=== PATIENT | female | born 1975 | race Caucasian/White ===

== ENCOUNTER 2017-01-10 14:30 | Outpatient (RCR) | payer MEDICARE ==
--- NOTE | 2017-01-10 10:59 | PT/OT/ST INITIAL EVALUATION ---
Department of Health and Human Services Form Approved Health Care Financing Administration OMB No. [id number] PLAN OF CARE/ASSESSMENT FOR OUTPATIENT REHABILITATION (Complete for Initial Claims Only) 1. PATIENT'S NAME Noreen Flores 2. ACC # [id number] 3. [id number] 4. PROVIDER NO. [id number] 5. TYPE: PT 6. PRIOR HOSPITALIZATION None 7. PRIMARY DX Left foot pain 8. SECONDARY DX NA 9. ONSET DATE 12/23/2016 10. REFERRAL DATE NA 11. SOC. DATE 01/07/2017 12. TIME OF EVAL 3:20 p.m. to 4:26 p.[address]. [address] RE[address]YSICIAN Dr. Chris Acharya 13. CHARGES/UNITS 14. G CODES [id number] 15. PRIOR LEVEL OF FUNCTION; PERTINENT HISTORY (Prior therapy results, reason for referral.) S: Prior to therapy the patient consented to today's evaluation and treatment. The patient is a 41-year-old female referred to physical therapy by Dr. Chris Acharya to address left foot and heel pain. Personal health rating: The patient rates overall and general health as fair. Mechanism of injury: The patient reports being unsure of how she had this onset of pain. She does report that the pain started to begin after December 23, 2016. She reports at this time she bought a new car and noticed the left foot pain when getting out of the car and weight bearing through the foot. Primary Complaint: The patient reports primarily experiencing pain and popping in the left heel. She also reports tenderness to touch along the back side of the heel along the Achilles tendon. The patient reports not knowing when her ankle is going to pop, but when it does it is very painful. After she experiences this popping sensation the pain can either subside or last for even a whole day. Prior level of function: Prior to the current complaint of left heel pain, the patient was able to complete all household tasks and take care of her children without any functional limitations. Current level of function: The patient reports that currently she is unable to ascend and descend stairs without pain and without feeling like her ankle is going to pop. She also reports being unable to walk and play with her children as she would desire. The patient is also reporting that she may be attributing some of the lack of mobility to her weight. The patient does report that this has been a challenge for her over time and something she is continuing to want to address. Therapy History: The patient reports no therapy history for this current issue at this time. Obstacles to delivery of care: None identified at this time. Pain level: Max pain level 8/10. Current pain level is 0/10. Aggravating factors: The patient reports not knowing exactly when she is going to hurt her ankle, but often is happening when she is taking a step on the left foot. Relieving factors: The patient report having relief of her symptoms when she is off her feet and also wearing her shoe insoles from her change lead. Diagnostic testing: No imaging was reported at this time. Past medical history: According to the intake form, the patient reports having a past medical history of depression, weight problems, gallbladder surgery, 2 hernia repairs, and C-sections. Patient's Goal: The patient reports desiring to return to prior level of function without pain, and also desiring to lose weight. 16. INITIAL ASSESSMENT/SAFETY PRECAUTIONS/MEDICAL COMPLICATIONS (Level of function at start of care. Be specific, use objective measures, list problems.) O: APPEARANCE, OBSERVATION AND GAIT: The patient is a pleasant, obese woman with a BMI of 62.5. The patient ambulates at a decreased loy, reciprocal pattern, wide base of support, and even step length. The patient also ambulates with bilateral ankle eversion with every step, and also increased supination throughout gait. The patient is also demonstrating limited toe-off in terminal stance of the gait cycle. A Trendelenburg gait on the left is observed. Upon static standing, the patient has mild resting pronation in bilateral ankles. The patient also has bilateral calcaneal eversion at rest. When weight shifting from side to side, the bilateral naviculars drops minimally. The patient also has heel popping throughout the exam today. PALPATION: The patient is tender to palpation along the left Achilles tendon, as well as along the lateral aspect of the ankle near the fibularis longus and brevis tendons. The patient also has bilateral muscle tightness in the gastrocsoleus complex, but especially on the left. The patient also has excessive calcaneal inversion on the left ankle as observed during mobilization of the left ankle. SPECIAL TESTS: No special tests completed this date. The patient has pain with inversion overpressure, as well as excessive pain in dorsiflexion. The patient also has a height of 64.5 inches and weight of 370 pounds, which is a BMI of 62.5 today. RANGE OF MOTION/FLEXIBILITY: Right ankle dorsiflexion 3 degrees, left 3 degrees, Ankle plantar flexion on the right 38 degrees, left 38 degrees. Ankle inversion on the right 17 degrees, and left 17 degrees. Right eversion 35 degrees, and left 34 degrees. STRENGTH: Hip flexion right 5/5, left 5/5. Right knee flexion 5/5, left 4+/5, right knee extension 4+/5, left 4/5, right dorsiflexion 5/5, left 5/5, right plantar flexion 5/5, left 5/5. Right hip abduction 3+/5, and left 3-/5. TODAY'S TREATMENT: Today's treatment consisted of education on the findings of the exam and the role of physical therapy and plan of care, initiation of light therapeutic exercise, gait training, as well as initiation of the home exercise program. 17. INITIAL POC: (Specify procedures, modalities, short and intermodal truck driver goals) A: PROGNOSIS: Upon completion of the today's initial physical therapy examination the patient presents for a good prognosis for therapy pending regular attendance and therapy sessions, as well as compliance with the home exercise program. Skill physical therapy services needed for increased range of motion, strengthening, gait training, and postural reeducation in order to reach patient's goals. OUTCOME ASSESSMENT: The patient completed the Lower Extremity Functional Index today with a score of 53/80. INFORMED CONSENT: The diagnosis, prognosis, treatment plan, risks and expected outcomes were discussed with the patient and the patient did agree to today's established plan of care. SHORT TERM GOALS: 1. The patient will be independent and compliant with home exercise program in 1 week in order to promote progress and therapy. 2. In 3 weeks the patient will demonstrate an increase in hip abduction strength from 3+/5 on the right and 3-/5 on the left to 4/5 bilaterally in order to promote normalized gait. 3. In 3 weeks, the patient will demonstrate a decrease in BMI to 62.5 to 61.5 in order to promote progress towards goals. 4. The patient will report a decrease in the Lower Extremity Functional Index score from 66% to 50% in 5 weeks in order to complete functional tasks in the home. 5. In 5 weeks, the patient will demonstrate an increase in bilateral ankle dorsiflexion from 3 degrees to 10 degrees in order to promote normal toe-off in terminal stance of gait. P: Plan to treat the patient 2 times a week for 6 weeks in order to address range of motion restrictions, functional limitations, strength deficits, as well as postural awareness. Treatment to include modalities as indicated to assist in manual therapies or for pain relief. Manual therapies including joint mobilization, myofascial release, as well as soft tissue mobilization, balance and proprioception training, gait training, therapeutic exercise to address strength and range of motion deficits, and neural reeducation and home exercise program. Thank you for the referral of this patient today. Noelle Najera, SPT dictating for Buster Carlson, PT 18. FREQUENCY 19. DURATION 20. FUNCTIONAL LEVEL (End of claim period) 21. PHYSICIAN SIGNATURE ? ON FILE OR ENTER HERE: 22. DATE: I certify the need for these services furnished under this plan of care and if for partial hospitalization. 23. CERTIFICATION FROM THROUGH FORM FA-700
[~2017-01-10 14:30] MED LIST: CEPH500T PO; CITA40TA19 PO; CPR500T PO; NF-TORA10 PO; NO HOME MEDICATIONS; TOPI100T38 PO; TRAM-25 PO
[2017-01-13] MEDS ORDERED: HYDR-3702 PO (16:22)
== END 2017-02-11 09:57 | disposition home or self-care (01) ==
LOC: PT 14:30
PROVIDERS: ATTEND Family Medicine
DX: M79.672 Pain in left foot (principal)
CPT/HCPCS: 97110; 97161; G8978; G8979

== ENCOUNTER → 2017-01-13 | Emergency (ER) | payer MEDICARE ==
[~2017-01-13] VITALS: Ht 165.1 cm; Wt 159.0 kg
[~2017-01-13] MED LIST changes: +HYDR-3702 PO; +HYDROcodone/APAP 5 MG/325 MG (NORCO) TAB PO ONE
--- OUTSIDE RECORDS SUMMARY | 2017-01-13 14:18 | XMS REPORT | Continuity of Care Document ---
Author Author [facility] Address Unknown Phone Unavailable Care Team Providers Care Senior Information Security Architect Name Role Phone EMERITA PARMAR MD PCP [phone] Insurance Providers Payer Name Policy Number Subscriber Name Relationship Medicare A And B [id number] Noreen Dykes 18 Self / Same As Patient Advance Directives Directive Response Recorded Date/Time Advanced Directives No 08/17/16 12:48pm Chief Complaint and Reason for Visit Chief Complaint Cardiac Complaint Reason for Visit Anxiety Problems Active Problems Medical Problem Onset Date Status Abdominal muscle pain Unknown Acute Acute lower urinary tract infection 07/20/2013 Resolved Anxiety Unknown Acute Carbon monoxide exposure ~06/03/2015 Acute Flank pain ~12/05/2013 Resolved Puncture wound Unknown Acute Puncture wound of skin 05/14/2012 Resolved Sprain of left ring finger ~11/18/2014 Acute Urinary tract infection Unknown Acute Medications Current Home Medications Medication Dose Units Route Directions Days/Qty Instructions Start Date No Home Medications 12/05/13 Citalopram Hydrobromide 40 Mg 40 Mg ORAL Bedtime as needed for Anxiety 06/02/15 Topiramate 100 Mg 100 Mg ORAL Daily as needed for Headache 08/17/16 Past Home Medications Medication Directions Ordered Status Cephalexin 500 Mg Tablet, 500 Mg Oral Four Times Daily 11/01/12 Discontinued Ciprofloxacin 500 Mg Tablet, 1 Tab Oral Twice A Day 07/20/13 Discontinued Tramadol Hcl 50 Mg Tablet, 50 Mg Oral Every 6 Hours as needed for Pain Discontinued Ketorolac Tromethamine 10 Mg Tab, 10 Mg Oral Every 6 Hours as needed for Pain 11/18/14 Discontinued Social History Query Response Start Date Stop Date Smoking Status Former smoker Hospital Discharge Instructions No hospital discharge instructions. Plan of Care Discharge Date 08/17/16 5:55pm Disposition 01 HOME OR SELF-CARE Condition at Discharge Stable Instructions/Education Provided Generalized Anxiety Disorder (ED) Prescriptions See Medication Section Referrals EMERITA PARMAR MD - Additional Instructions/Education Continue current medications Follow up with Dr. Parmar next week REturn if symptoms worsen Some of your test results may not be complete prior to your leaving the Emergency Department. The Emergency Department is not authorized to give test results over the phone. Please contact the doctor's office listed in this packet of information for your final results. Follow up with your primary care physician or return to the Emergency Department for worsening or worrisome symptoms. * Emergency Department phone number: [phone], x [phone]* MEDICAL RECORD If you need copies of your X-rays, call [phone]. If you need copies of your medical record, including lab results, a signed authorization for release of records will be required. A telephone call for release of Health Information is not allowed. BILLING Billing can sometimes be confusing and frustrating. To help avoid confusion in the future, please take a moment to acquaint yourself with the billing parties for services. SERVICE BILLING DEMOCRAT Emergency Room Services [facility] Physician Services [facility] X-rays [facility] Patients will receive bills for services from the appropriate provider. If you have any questions about your [facility] bill, our staff will be happy to assist you. Please call [phone], and ask for the billing department. THANK YOU for choosing [facility] as your emergency care provider! Care Plan and Goals ~~Discharge Care Plan~~ Problem: Chest, epigastric or chest wall pain Goal: Decreased pain Instructions: Take medication(s) as directed. Follow home discharge instructions. Follow up with primary care physician or derrick follower as directed. Functional Status No functional status results. Allergies, Adverse Reactions, Alerts Allergen Type Severity Reaction Status Last Updated Nitrofurantoin Macrocrystal Allergy Severe racing heart beat, hives Active 05/14/12 Nitrofurantoin Allergy Severe racing heart beat, hives Active 05/14/12 Azithromycin Allergy Mild racing heart beat Active 05/14/12 Immunizations No immunization records. Vital Signs Acute Vital Signs Vital Response Date/Time Temperature (Fahrenheit) 97.1 08/17/2016 5:34pm Pulse 78 bpm 08/17/2016 5:34pm Respirations 16 08/17/2016 5:34pm Height 5 ft 5 in Weight 339 lb Body Mass Index 56.0 kg/m^2 Results Laboratory Results Test Name Result Units Flags Reference Collection Date/Time Result Date/ Time Comments White Blood Count 5.65 10^3uL 4.0-11.0 08/17/2016 1:09pm 08/17/2016 1: 49pm Red Blood Count 4.19 10^6uL 4.00-5.00 08/17/2016 1:09pm 08/17/2016 1: 49pm Hemoglobin 12.1 g/dL 12.0-15.5 08/17/2016 1:09pm 08/17/2016 1:49pm Hematocrit 37.80 % 35.00-45.00 08/17/2016 1:09pm 08/17/2016 1:49pm Mean Corpuscular Volume 90 FL 80-100 08/17/2016 1:09pm 08/17/2016 1: 49pm Mean Corpuscular Hemoglobin 28.9 PG 26.0-34.0 08/17/2016 1:09pm 2015 1:49pm Mean Corpuscular Hemoglobin Concent 32.0 g/dL 31.0-37.0 08/17/2016 1: 09pm 08/17/2016 1:49pm Red Cell Distribution Width 15.0 % 11.8-15.6 08/17/2016 1:09pm 2015 1:49pm Platelet Count 182 10^3uL 150-450 08/17/2016 1:09pm 08/17/2016 1:49pm Mean Platelet Volume 12.0 FL H 6.0-9.5 08/17/2016 1:09pm 08/17/2016 1: 49pm Neutrophils (%) (Auto) 61 % 51-67 08/17/2016 1:09pm 08/17/2016 1:49pm Lymphocytes (%) (Auto) 26 % 20-46 08/17/2016 1:09pm 08/17/2016 1:49pm Monocytes (%) (Auto) 10 % 3-11 08/17/2016 1:09pm 08/17/2016 1:49pm Eosinophils (%) (Auto) 3 % 0-4 08/17/2016 1:09pm 08/17/2016 1:49pm Basophils (%) (Auto) 1 % 0-2 08/17/2016 1:09pm 08/17/2016 1:49pm Neutrophils # (Auto) 3.4 X10^3 08/17/2016 1:09pm 08/17/2016 1:49pm Lymphocytes # (Auto) 1.5 X10^3 08/17/2016 1:09pm 08/17/2016 1:49pm Monocytes # (Auto) 0.6 X10^3 08/17/2016 1:09pm 08/17/2016 1:49pm Eosinophils # (Auto) 0.1 10^3uL 08/17/2016 1:09pm 08/17/2016 1:49pm Basophils # (Auto) 0.0 10^3uL 08/17/2016 1:09pm 08/17/2016 1:49pm D-Dimer 633 ng/mL *H 0-500 08/17/2016 1:09pm 08/17/2016 2:21pm Results called to Suma SOLER in ER who read back the results. Called by Kiki Cruz at 1421 Sodium Level 142 mmol/L 135-150 08/17/2016 1:09pm 08/17/2016 1:53pm Potassium Level 4.4 mmol/L # 3.5-5.1 08/17/2016 1:09pm 08/17/2016 1:53pm Chloride Level 105 mmol/L 98-108 08/17/2016 1:09pm 08/17/2016 1:53pm Carbon Dioxide Level 28 mmol/L 22-29 08/17/2016 1:09pm 08/17/2016 1: 53pm Anion Gap 12.8 MEQ/L 3-15 08/17/2016 1:09pm 08/17/2016 1:53pm Blood Urea Nitrogen 12 mg/dL 7-18 08/17/2016 1:09pm 08/17/2016 1:53pm Creatinine 0.89 mg/dL 0.6-1.2 08/17/2016 1:09pm 08/17/2016 1:53pm BUN/Creatinine Ratio 13 10-20 08/17/2016 1:09pm 08/17/2016 1:53pm Estimat Glomerular Filtration Rate 85.9 08/17/2016 1:09pm 2015 1:53pm Estimated GFR (Non- 71.0 08/17/2016 1:09pm 2015 1:53pm Glucose Level 98 mg/dL 70-110 08/17/2016 1:09pm 08/17/2016 1:53pm Calculated Osmolality 273 mosm/L L 280-300 08/17/2016 1:09pm 08/17/2016 1:53pm Calcium Level 9.2 mg/dL 8.8-10.8 08/17/2016 1:09pm 08/17/2016 1:53pm Calcium/Ionized Calcium Ratio 4.2 mg/dL 3.8-4.6 08/17/2016 1:09pm 08/17 1:53pm Total Bilirubin 1.6 mg/dL H 0.1-1.0 08/17/2016 1:09pm 08/17/2016 1:53pm Alkaline Phosphatase 93 U/L 38-126 08/17/2016 1:09pm 08/17/2016 1:53pm Aspartate Amino Transf (AST/SGOT) 25 U/L 15-37 08/17/2016 1:09pm 2015 1:53pm Alanine Aminotransferase (ALT/SGPT) 44 U/L 30-65 08/17/2016 1:09pm 10/2015 1:53pm Troponin I < 0.012 ng/mL 0.010-0.080 08/17/2016 1:09pm 08/17/2016 1: 58pm Total Protein 6.7 g/dL 6.4-8.5 08/17/2016 1:09pm 08/17/2016 1:53pm Albumin 3.9 g/dL 3.4-5.0 08/17/2016 1:09pm 08/17/2016 1:53pm Albumin/Globulin Ratio 1.392 1.1-1.8 08/17/2016 1:09pm 08/17/2016 1: 53pm Procedures No known history of procedures. Encounters Encounter Location Arrival/Admit Date Discharge/Depart Date Attending Provider Departed Emergency Room [facility] 08/17/16 12:42pm 08/17/16 5:55pm TAINA JERNIGAN MD Recent Diagnosis
[2017-01-13 15:35] LABS: BASOPHILS % (AUTO) 1 % (0-2); EOSINOPHILS # (AUTO) 0.2 10^3uL; EOSINOPHILS % (AUTO) 3 % (0-4); LYMPHOCYTES # (AUTO) 1.7 X10^3; MEAN CORPUSCULAR HEMOGLOBIN 28.8 PG (26.0-34.0); MEAN CORPUSCULAR HGB CONC 31.9 g/dL (31.0-37.0); MEAN CORPUSCULAR VOLUME 91 FL (80-100); MEAN PLATELET VOLUME 11.7 FL (6.0-9.5); MONOCYTES # (AUTO) 0.4 X10^3; MONOCYTES % (AUTO) 7 % (3-11); NEUTROPHILS # (AUTO) 3.4 X10^3; NEUTROPHILS % (AUTO) 59 % (51-67); PLATELET COUNT 178 10^3uL (150-450); WHITE BLOOD COUNT 5.81 10^3uL (4.0-11.0)
[2017-01-13 15:53] LABS: ALBUMIN 4.1 g/dL (3.4-5.0); ANION GAP 15.2 MEQ/L (3-15); CALCULATED IONIZED CALCIUM 3.9 mg/dL (3.8-4.6); TOTAL PROTEIN 7.4 g/dL (6.4-8.5)
[2017-01-13 16:38] VITALS: BP 112/60
--- NOTE | 2017-01-13 16:44 | Diagnostic Imaging Report ---
PROCEDURE: US Abdomen, limited. TECHNIQUE: Multiple realtime grayscale images were obtained over the abdomen in various projections. INDICATION: Right upper quadrant pain. History of prior cholecystectomy. FINDINGS: Exam is somewhat limited by patient body habitus. There is diffuse hepatic steatosis. No focal hepatic mass is suspected. There is no biliary dilatation. The common bile duct measures about 4 mm. The gallbladder is absent. The pancreas is not well evaluated. The right kidney measures about 11.8 cm in length and appears unremarkable. There is no ascites. There is no sonographic Thurston's sign. Targeted ultrasound over the area of pain shows no hernia or other focal abnormality. IMPRESSION: 1. Status post cholecystectomy. 2. No additional abnormality is seen. Pancreas is not well evaluated. Dictated by: Dictated on workstation # [id number]
== END | disposition home or self-care (01) ==
LOC: EDUNIT# 14:10 → ED 14:13
DX: R10.11 Right upper quadrant pain (principal); Z87.891 Personal history of nicotine dependence
CPT/HCPCS: 36415; 76705; 80053; 83690; 85025; 86140; 99282; A9270; 99283